=== PATIENT | male | born 1980 | race Caucasian/White ===

== ENCOUNTER 2022-12-20 00:04 | Emergency (ER) | payer BC ==
[~2022-12-20] VITALS: Ht 180.3 cm; Wt 90.7 kg
[2022-12-20 00:25] VITALS: BP 153/92
--- NOTE | 2022-12-20 00:25 | NUR ---
BIBSELF FROM HOME C/O L EAR PAIN X1HR.
[2022-12-20] MEDS ORDERED: PHEN10TA PO (00:26)
[2022-12-20] MEDS ORDERED: AMOX500C2 PO (00:26)
--- NOTE | 2022-12-20 00:29 | NUR ---
Patient discharged to home in stable condition. Written and verbal after care instructions given. Patient verbalizes understanding of instruction.
[2022-12-20] MEDS ORDERED: AMOXICILLIN TRIHYDRATE 500 MG CAPSULE PO ONE (00:30)
[2022-12-20] MEDS ORDERED: AMOXICILLIN TRIHYDRATE 250 MG CAPSULE ONE (00:32)
== END 2022-12-20 00:40 | disposition home or self-care (01) ==
LOC: ER 00:07
DX: H66.92 Otitis media, unspecified, left ear (principal); Z88.1 Allergy status to other antibiotic agents